=== PATIENT | female | born 1990 | race Asian ===

== ENCOUNTER 2019-12-20 15:15 | Emergency (ER) | payer OTHER ==
[2019-12-20] MEDS ORDERED: Prochlorperazine 10 MG/2 ML VIAL ONE (15:58)
== END 2019-12-20 16:35 | disposition home or self-care (01) ==
LOC: MADERS 15:15
DX: K52.9 Noninfective gastroenteritis and colitis, unspecified (principal); R55 Syncope and collapse; F41.9 Anxiety disorder, unspecified; F32.9 Major depressive disorder, single episode, unspecified
CPT/HCPCS: 36416; 96372; 99283; J0780